=== PATIENT | female | born 1985 | race Caucasian/White ===

== ENCOUNTER 2018-01-26 19:03 | Emergency (ER) | payer BC, SELFPAY ==
[2018-01-26 19:04] VITALS: BP 116/54; PULSE 114; RESP 18; TEMP 36.1; O2SAT 100; BMI 40.3
--- NOTE | 2018-01-26 20:29 | US_ITS ---
STUDY: FIRST TRIMESTER OBSTETRICAL ULTRASOUND REASON FOR EXAM: Female, 33 years old. Pain. LMP: 12/20/2017 TECHNIQUE: Transvaginal PRIOR ULTRASOUND: None. FINDINGS: There is fluid in the endometrial cavity which may represent a gestational sac. There is a rounded echogenic structure within the fluid which may represent a yolk sac. However, there is no pole visualized at this time. There is a 6 mm anechoic area adjacent to the presumed gestational sac which may represent a subchorionic bleed. The uterus measures 8.4 x 5.4 x 4.0 cm. There is no demonstrated uterine fibroid. The cervix is closed. The right ovary measures 3.5 x 2.2 x 2.1 cm. There is a 1.9 cm cyst in the right ovary. There is no visualized right adnexal mass or complex lesion. The left ovary measures 2.8 x 2.0 x 1.4 cm. There is no left ovarian cyst. There is no visualized left adnexal mass or complex lesion. There is no fluid in the cul de sac. US/Transvaginal w/Preg US IMPRESSION: Findings which may represent an early gestational sac and yolk sac. However, no pole is identified at this time. These findings may be due to an early gestation or a spontaneous . A nonvisualized ectopic is considered less likely, though not excluded. Follow up sonography and beta hCG levels are recommended. 6 mm anechoic area adjacent to the presumed gestational sac which may represent a subchorionic hemorrhage. Electronically Signed: Paulo Abraham, at 21:47 EDT Tel , Service support ,
[2018-01-26 21:06] LABS: Bacteria 0 SEEN /hpf (None Seen); Mucous, Urine 0 SEEN /hpf (<or=2+); White Blood Cells 0 SEEN /hpf (0-5)
[2018-01-26 21:11] LABS: Color, Urine Yellow (Yellow); Glucose, Dipstick 50 mg/dl (Normal); Ketone-Dipstick Negative (Negative); Leukocyte Esterase-Dipstick 25 /ul (Negative); Nitrite-Dipstick Negative (Negative); Occult Blood-Urine Negative /ul (Negative); Protein-Dipstick Negative (Negative); Urine Bilirubin Dipstick Negative (Negative); Urine Clarity Clear (Clear); Urine Urobilinogen Normal (Normal)
[2018-01-26 21:22] LABS: Absolute Lymphocyte Count 2.13 X10^3/ul (0.83-4.51); Anion Gap 7 (5-15); BUN 14 mg/dL (7-18); BUN/Creat Ratio 15.8 RATIO (10-20); Basophil# 0.01 X10^3/uL; Basophil% 0.1 % (0-1); Calcium,Total 9.2 mg/dL (8.5-10.1); Chloride 108 mmol/L (98-107); Creatinine, Serum 0.89 mg/dL (0.55-1.02); EST Glomerular Filtration Rate 77 mL/min (>60); Eosinophil# 0.15 X10^3/uL; Eosinophils% 1.5 % (0-5); Est Glom Filt Rate - Afr Amer 93 mL/min (>60); Estimated Creatinine Clearance 95.41 ml/min; Glucose 88 mg/dL (74-106); Hematocrit 39.7 % (37-47); Hemoglobin 12.7 g/dl (12.0-15.0); Lymphocyte # 2.13 X10^3/ul (4.0); Lymphocyte % 21.7 % (19-41); Mean Corpuscular Hgb 27.9 pg (27.0-32.0); Mean Corpuscular Volume 87.3 fL (81-99); Mean Platelet Vol. 10.8 fl (6.2-12.0); Monocyte# 0.48 X10^3/uL; Monocyte% 4.9 % (0-10); Neutrophil # 7.04 X10^3/uL (2.7-7.7); Neutrophil % 71.7 % (47-70); Platelet Count 249 K/mm3 (150-450); Potassium 3.6 mmol/L (3.5-5.1); RBC Distribution Width CV 14.6 % (11.6-14.6); RBC Distribution Width SD 46.3 fl (35.1-43.9); Red Blood Count 4.55 M/mm3 (4.2-5.4); Sodium Level 141 mmol/L (136-145); White Blood Count 9.8 K/mm3 (4.4-11.0)
[2018-01-26 21:31] LABS: POSITIVE COUNT NO; POSITIVE DIFFERENTIAL NO; POSITIVE MORPHOLOGY NO
[2018-01-26 21:39] LABS: hCG Titer Quant., Serum 18528 mIU/mL (<9 non-preg)
[2018-01-26 21:49] LABS: Red Blood Cells-Urine 0-5 SEEN /hpf (0-5); Squamous Epithelial Cells - UA 5-10 SEEN /hpf (5-10)
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
--- NOTE | 2018-01-26 22:31 | ED.DCSUM_ITS ---
- ER Visit Summary Date of Service: 01/26/18 Chief Complaint: [New , back pain] History of Present Illness: The patient is a 33 F [presents the emergency department stating that she just found out 5 days ago she was . Patient thinks she is about 5 weeks . Patient states that she has had some pain in her low back today and it was severe to the point that was making her weep. Patient also has had some swelling to her hands and feet. Patient denies urinary symptoms. Patient denies any vaginal bleeding. She denies any abdominal pain. Patient tells me that she had an ectopic in 2016 and they removed her right fallopian tube. Patient is concerned about ectopic.] Physical Examination: [HEENT-PERRLA, EOMI. Cranial nerves II through XII grossly intact. TMs clear. Mucous membranes moist. No adenopathy. Cardiovascular-regular rate and rhythm without murmur or ectopy Lungs-clear to auscultation, chest wall stable without crepitus or subcu emphysema Abdomen-normoactive bowel sounds, soft, nontender, no rebound or rigidity, no peritoneal signs. Back exam-patient has diffuse tenderness palpation over the lower lumbar paraspinal musculature bilaterally. Negative straight leg raises. Deep tendon reflexes are plus 2 out of 4 bilaterally at the patella and Achilles. Patient has normal L5 extension. Extremities-intact ?4, normal range of motion, normal pulses, atraumatic] Test Results: [CBC with differential was normal. Chemistries unremarkable. Urine was normal. Quantitative hCG was 18,528. Blood type is O+. Pelvic ultrasound was obtained which showed findings that may represent early gestational sac and yolk sac however no pole identified at this time findings may be due to early gestation or spontaneous and non- visualized ectopic is considered less likely though not excluded. Follow-up sonography and beta-hCG levels are recommended. There was a 6 mm anechoic area adjacent to the presumed gestational sac which may represent a subchorionic hemorrhage.] Emergency Department Course and Treatment: [Case was discussed with Dr. Wilde 's agricultural chemist Calli Mccain. Patient to follow-up with their office later this week. Patient will require follow-up hCG and ultrasound.] Treatment Plan: [Patient will be given a prescription for Harbert for pain] Disposition: [Discharged to home in stable condition] Impression: [ Back pain] This note was generated with [employer] dictation software. It may contain incorrect words, spelling, and punctuation that were not noted in review of the chart prior to signing ED Disposition - Plan for ED Patient: Chief Complaint: Referrals: Mauricio Aldridge MD [Primary Care Provider] -
--- NOTE | 2018-01-26 22:34 | DCINST.ED_ITS ---
ED Disposition - Plan for ED Patient: Chief Complaint: Instructions: Back Pain During , ED Care Prescriptions: Hydrocodone Bitart/Apap 5-325 [[place] 5/325] 1 - 2 tab PO Q4H PRN PRN 3 Days #12 tab PRN Reason: Pain Referrals: Mauricio Aldridge MD [Primary Care Provider] - Subha Gibbons MD [STAFF PHYSICIAN] - 3-5 Days
[2018-01-26] MEDS: HYDROcodone Bitartrate/Apap 5/325 Tablet PO (23:00)
[2018-01-26 23:10] VITALS: PULSE 81; RESP 16; O2SAT 98
--- NOTE | 2018-01-26 23:10 | ED.RN ---
THIS NURSE REVIEWED D/C INSTRUCTIONS WITH PT. PT VERBALIZED UNDERSTANDING OF INSTRUCTIONS. IV D/C. IV CATHETER INTACT. PT TOLERATED WELL. PT DENIES FURTHER NEEDS OR QUESTIONS AT THIS TIME. PT AMBULATES FROM ROOM ON OWN WITHOUT ASSISTANCE FROM STAFF
== END 2018-01-26 23:11 | disposition home or self-care (01) ==
PROVIDERS: Emergency Provider Emergency Medicine; Family Provider Family Medicine; PCP Family Medicine
DX: O26.891 Other specified pregnancy related conditions, first trimester (principal); M54.9 Dorsalgia, unspecified; O09.11 Supervision of pregnancy with history of ectopic pregnancy, first trimester; Z3A.01 Less than 8 weeks gestation of pregnancy
CPT/HCPCS: 76817; 80048; 81001; 84702; 85025; 86900; 99283; A4216

== ENCOUNTER → 2018-01-28 10:40 | Outpatient (CLI) | payer BC, SELFPAY ==
[2018-01-28 11:50] LABS: hCG Titer Quant., Serum 23446 mIU/mL (<9 non-preg)
== END ==
PROVIDERS: Visit Provider Obstetrics & Gynecology
DX: O26.20 Pregnancy care for patient with recurrent pregnancy loss, unspecified trimester (principal); Z3A.00 Weeks of gestation of pregnancy not specified
CPT/HCPCS: 36415; 84702

== ENCOUNTER 2018-02-21 12:45 | Emergency (ER) | payer BC, SELFPAY ==
[2018-02-21 12:46] VITALS: BP 143/86; PULSE 98; RESP 16; O2SAT 100
[2018-02-21 12:47] VITALS: BP 143/86; PULSE 103; RESP 18; TEMP 36.9; O2SAT 100; BMI 41.0
[2018-02-21 12:58] VITALS: O2SAT 100
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
[2018-02-21] MEDS: Acetaminophen 500 MG Tablet 1000 MG PO (15:06)
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
[2018-02-21 15:21] LABS: Bacteria 0 SEEN /hpf (None Seen); Mucous, Urine 0 SEEN /hpf (<or=2+); Red Blood Cells-Urine 0 SEEN /hpf (0-5); White Blood Cells 0 SEEN /hpf (0-5)
[2018-02-21 15:23] LABS: Color, Urine Yellow (Yellow); Glucose, Dipstick Normal (Normal); Ketone-Dipstick 50 mg/dl (Negative); Leukocyte Esterase-Dipstick 25 /ul (Negative); Nitrite-Dipstick Negative (Negative); Occult Blood-Urine Negative /ul (Negative); Protein-Dipstick Negative (Negative); Urine Bilirubin Dipstick Negative (Negative); Urine Clarity Clear (Clear); Urine Urobilinogen Normal (Normal); Urine pH 6.5 (5.0 - 8.0)
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
[2018-02-21 15:46] LABS: Squamous Epithelial Cells - UA 0-5 SEEN /hpf (5-10)
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
[2018-02-21 16:10] VITALS: PULSE 89; RESP 14; O2SAT 99
== END 2018-02-21 16:11 | disposition home or self-care (01) ==
PROVIDERS: Emergency Provider Emergency Medicine; Family Provider Family Medicine; PCP Family Medicine
DX: O99.89 Other specified diseases and conditions complicating pregnancy, childbirth and the puerperium (principal); S80.12XA Contusion of left lower leg, initial encounter; S80.11XA Contusion of right lower leg, initial encounter; V43.52XA Car driver injured in collision with other type car in traffic accident, initial encounter; Y93.89 Activity, other specified; Y92.9 Unspecified place or not applicable; O26.891 Other specified pregnancy related conditions, first trimester; R10.13 Epigastric pain; Z3A.08 8 weeks gestation of pregnancy
CPT/HCPCS: 73590; 76700; 76817; 81001; 99282

== ENCOUNTER 2018-09-21 09:50 | Inpatient (IN) | payer BC, SELFPAY ==
[2018-09-15 11:49] VITALS: BMI 42.5
[2018-09-21] VITALS (17 sets, daily range): BP systolic 99–125; BP diastolic 45–84; PULSE 83–99; RESP 14–20; TEMP 35.8–36.7; O2SAT 95–99; BMI 43.0
--- NOTE | 2018-09-21 | FALS_PTH ---
PATIENT: LORI PAREDES LOC: [facility] U#:[id number] AGE/SX: 33/F ROOM: [facility] RE09/21/[address]: Dr. Subha Gibbons, MDDOB: 1985 BED: 1 DIS: 09/23/2018 SPEC #: [id number] RECD: 09/22/18 13:12 STATUS: LALITA MISHA #: [id number] MARCIE: 09/21/18 00:[address]: Subha Gibbons DEPT: SURGICAL PATHOLOGY RECD BY: Nehemiah Temple ENTERED: 09/22/18 13:12 SP TYPE: FALL TUBES OTHR DR: MD Mauricio Callejas MD Tissues: Fallopian tube Procedures: Surgery Specimen Level II HEADER OPERATION: Tubal ligation PRE-OP DIAGNOSIS: Tubal ligation TISSUE SUBMITTED: Left fallopian tube MICROSCOPIC DIAGNOSIS Left fallopian tube, tubal ligation: Completely transected segment of fallopian tube, no pathologic diagnosis. DEBO:marcellus 09/23/18 COMMENT Please make reference to previous specimen ([id number]), right fallopian tube and ectopic with diagnosis of fallopian tube with decidua, immature chorionic villi and blood clots (ectopic ). MICROSCOPIC DESCRIPTION Slides are reviewed. GROSS DESCRIPTION Received in fixative is one container labeled with the patient's name and designated left tube. The specimen consists of a tubular piece of santiago soft tissue measuring 1 cm in length and up to 0.9 cm in diameter. The entire specimen is submitted in one cassette. It will be serially sectioned at the time of embedding. / DEBO:marcellus 09/22/18 TC:4 CPT: 05409
[2018-09-21 10:53] LABS: Absolute Lymphocyte Count 1.48 X10^3/ul (0.83-4.51); Absolute Neutrophil Count 9.3 X10^3/uL (2.0-7.7); Eosinophil# 0.04 X10^3/uL; Eosinophils% 0.4 % (0-5); Hematocrit 37.1 % (37-47); Lymphocyte # 1.48 X10^3/ul (4.0); Lymphocyte % 13.1 % (19-41); Mean Corp Hgb Conc 32.3 g/gl (32-36); Mean Corpuscular Hgb 28.9 pg (27.0-32.0); Mean Corpuscular Volume 89.4 fL (81-99); Mean Platelet Vol. 11.7 fl (6.2-12.0); Monocyte# 0.49 X10^3/uL; Monocyte% 4.3 % (0-10); Neutrophil # 9.31 X10^3/uL (2.7-7.7); Neutrophil % 82.1 % (47-70); Platelet Count 174 K/mm3 (150-450); RBC Distribution Width CV 14.8 % (11.6-14.6); RBC Distribution Width SD 48.2 fl (35.1-43.9); Red Blood Count 4.15 M/mm3 (4.2-5.4); White Blood Count 11.3 K/mm3 (4.4-11.0)
[2018-09-21] MEDS: Lactated Ringers 1,000 ML 999 ML IV (10:58)
[2018-09-21 10:59] LABS: POSITIVE COUNT NO; POSITIVE DIFFERENTIAL NO; POSITIVE MORPHOLOGY NO
[2018-09-21] MEDS: Lactated Ringers 1,000 ML 150 ML IV (11:42)
[2018-09-21] MEDS: Sodium Citrate/Citric Acid 30 ML UDC PO (11:52)
[2018-09-21] MEDS: Oxytocin 30 units/NS 500 ml 30 UNITS/500 ML IV.SOLN 167 UNITS IV (12:36)
--- NOTE | 2018-09-21 13:00 | PCM.OB.CSR ---
Delivery Classification: Scheduled Final [facility]IN[facility]Y Source: US <20 weeks Gestational age: 39.2 Indications: LGA- morbid obesity, EFW >4500g, h/o vacuum assisted delivery (previous delivery 8lb) Indications for : - - LGA Description of Procedure: Operative note: After informed consent was obtained the patient was taken the operating room she was given spinal anesthesia. She was then placed in the supine position. She was prepped and draped in the normal sterile fashion. Anesthesia was found to be adequate. At this time a Pfannenstiel skin incision was made with a knife was carried down to the underlying layer of the fascia. The fascial incision was then extended laterally using curved Zaman scissor. Attention was then turned to the superior aspect of the fascial edge was grasped with 2 straight [place] clamps tented up and the rectus muscle dissected off sharply using curved Zaman scissor. Attention was then turned to the inferior aspect where again Flor clamps were placed in the rectus muscles were tented up and the fascia was dissected off sharply using the curved Zaman scissor. Rectus muscles were then in the midline bluntly and peritoneum was entered bluntly. Gentle opposing traction was placed. At this time the vesicouterine peritoneum was identified. Scalpel was used to make a uterine incision in a low transverse fashion. The uterus was then entered bluntly gentle opposing traction was placed to extend this incision. Membranes were ruptured clear. Infant's head was brought to the uterine incision was delivered atraumatically. delayed cord clamping performed. Cord was clamped and cut infant was handed to the waiting nursery team. The Placenta was removed from the uterus. The uterus was then removed from the abdominal cavity. The uterus was cleared of all clots and debris using a lap. At this time the uterine incision was reapproximated using #1 Vicryl in a running locked fashion. Hemostasis was appreciated. Posterior cul-de-sac was then cleared of all clots and debris. [place] used to grasp left tube in avascular space- knuckle created and tied with #2 plain gut suture - double - metzenbaum used to create space in mesosalpinx and cut - ends cauterized with bovie- good hemostasis. Uterus was placed back in the abdominal cavity. Gutters were cleared of all clots and debris. Uterine incision was reevaluated and noted to be of excellent hemostasis. At this time the peritoneum was grasped with Kellys reapproximated using #2 Vicryl suture in a running fashion. Fascia was then reapproximated using #1 PDS in a running fashion. Subcu layer was reapproximated with #2 0 plain gut suture in an interrupted fashion. Subcu layer was closed using 4-0 Vicryl on a Bo needle in a subcu fashion. Dry sterile dressing was applied. Instrument lap needle count correct ?2. Anticipated normal postoperative course. Amniotic Membrane Rupture Type: Artificial Amniotic Fluid Description: Clear Placenta Disposition: [facility] Specimen(s) sent to pathology: left tube Drain: Lopez to straight drain Cord Entanglement: None Cord Vessel Description: 3 Vessels Esitmated Blood Loss (ml): 700 Gender: Male (1 minute): 9 (5 minute): 9 Delayed cord clamping: Yes Pre-op Antibiotic Given: Ancef 2 grams IV x1 Pt instructed on risks of surgery: Bleeding, Anesthesia Risks, Permanency, Failure Rate of 1 to 2%, Injury to surrounding structure(s) including bowel and bladder, Availability of other non-permanent control options Complications: None - Admit VTE Documentation VTE Present on Admission: Yes VTE Mechan Device Prophylaxis: SCD's VTE Pharm Prophylaxis ordered?: Yes
[2018-09-21] MEDS: Ketorolac 30 MG/ML Syringe IV ×2 (13:08→19:31)
[2018-09-21] MEDS: Lactated Ringers 1,000 ML 100 ML IV (15:34)
[2018-09-21] MEDS: Ondansetron 4 MG/2 ML Vial IV (16:06)
--- NOTE | 2018-09-21 16:37 | NURSING ---
pt nauseated and vomitting. zofran ivp given
[2018-09-22] VITALS (8 sets, daily range): BP systolic 106–120; BP diastolic 56–98; PULSE 91–106; RESP 16–20; TEMP 35.9–36.9; O2SAT 96–99
[2018-09-22] MEDS: Ketorolac 30 MG/ML Syringe IV ×5 (00:03→23:32)
[2018-09-22] MEDS: Lactated Ringers 1,000 ML 100 ML IV (01:31)
[2018-09-22] MEDS: Enoxaparin 40 MG/0.4 ML Syringe SC (05:47)
[2018-09-22 06:02] LABS: Hematocrit 31.7 % (37-47); Hemoglobin 10.3 g/dl (12.0-15.0); Mean Corp Hgb Conc 32.5 g/gl (32-36); Mean Corpuscular Hgb 29.7 pg (27.0-32.0); Mean Corpuscular Volume 91.4 fL (81-99); Mean Platelet Vol. 11.5 fl (6.2-12.0); Platelet Count 144 K/mm3 (150-450); RBC Distribution Width CV 14.9 % (11.6-14.6); RBC Distribution Width SD 48.3 fl (35.1-43.9); Red Blood Count 3.47 M/mm3 (4.2-5.4); White Blood Count 9.7 K/mm3 (4.4-11.0)
[2018-09-22 06:03] LABS: Scan Indicated on CBC? Y/N NO
--- NOTE | 2018-09-22 07:55 | PN.OBGYN_ITS ---
Subjective: pt seen at bedside, doing well. Pt reports good pain control. lochia mild. Shepherd in place. Denies CP, SOB, dizziness. - Physical Exam General: Alert, Oriented x3 Abdomen: Soft, Non-Distended, - - fundus firm. dressing dry and intact. Extremities: No Calf Tenderness Vital Signs Temp Pulse Resp BP Pulse Ox 97.4 F L 100 18 115/59 L 97 09/22/18 03:30 09/22/18 05:40 09/22/18 05:40 09/22/18 03:30 09/22/18 05:40 Oxygen Delivery Method Room Air Weight: 136.191 kg Body Mass Index (BMI) 43.0 Intake and Output for Last 24 Hours 09/20/18 09/21/18 09/22/18 23:59 23:59 23:59 Intake Total 4021 / 4021 1580 / 1580 Output Total 590 / 590 400 / 400 Balance 3431 / 3431 1180 / 1180 Laboratory Tests Past 24 Hrs 09/21/18 09/21/18 09/22/18 10:25 10:25 05:55 WBC 11.3 H 9.7 RBC 4.15 L 3.47 L Hgb 12.0 10.3 L Hct 37.1 31.7 L MCV 89.4 91.4 MCH 28.9 29.7 MCHC 32.3 32.5 RDW 14.8 H 14.9 H RDW Differential 48.2 H 48.3 H Plt Count 174 144 L MPV 11.7 11.5 Immature Gran % (Auto) 0.100 Neut % (Auto) 82.1 H Lymph % (Auto) 13.1 L Carroll % (Auto) 4.3 Eos % (Auto) 0.4 Baso % (Auto) 0.0 Absolute Neuts (auto) 9.3 H Absolute Lymphs (auto) 1.48 Total Counted Not Reportable Blood Type O POSITIVE Antibody Screen NEGATIVE Medical Necessity - Tobacco Use Smoking Status: Never smoker Assessment/Plan POD#1, doing well routine care pain mgmt dc shepherd ambulation abd binder
[2018-09-22] MEDS: 0.9% Saline Lock 10 ML Syringe IV ×3 (12:16→23:33)
[2018-09-22] MEDS: Senna/Docusate Sodium 1 Tablet PO (12:16)
[2018-09-22] MEDS: Acetaminophen 500 MG Tablet 1000 MG PO (17:42)
[2018-09-22] MEDS: oxyCODONE 5 MG Tablet PO (18:58)
[2018-09-23 01:40] VITALS: BP 125/61; PULSE 96; RESP 16; TEMP 36.6; O2SAT 98
[2018-09-23] MEDS: Ketorolac 30 MG/ML Syringe IV (05:54)
[2018-09-23] MEDS: Enoxaparin 40 MG/0.4 ML Syringe SC (05:54)
[2018-09-23] MEDS: 0.9% Saline Lock 10 ML Syringe IV (05:54)
[2018-09-23 08:01] VITALS: BP 111/70; PULSE 88; RESP 16; TEMP 36.6
--- NOTE | 2018-09-23 08:12 | PCM.PN.OB ---
Subjective: pt seen at bedside, doing well. pt reports overall good pain control. lochia mild . passing flatus. Denies CP, SOB, dizziness or palpitation. pt requesting dc home today. - Physical Exam General: Alert, Oriented x3 Abdomen: Soft, Non-Distended, - - fundus firm. Incision dressing dry and intact Extremities: No Calf Tenderness Vital Signs Temp Pulse Resp BP Pulse Ox 98 F 88 16 111/70 98 09/23/18 08:01 09/23/18 08:01 09/23/18 08:01 09/23/18 08:01 09/23/18 01:40 Oxygen Delivery Method Room Air Weight: 136.191 kg Body Mass Index (BMI) 43.0 Intake and Output for Last 24 Hours 09/21/18 09/22/18 09/23/18 23:59 23:59 23:59 Intake Total 4021 / 4021 1580 / 1580 Output Total 590 / 590 1000 / 1000 Balance 3431 / 3431 580 / 580 Medical Necessity - Tobacco Use Smoking Status: Never smoker Assessment/Plan POD#2, doing well routine care pain mgmt ambulation dc home
--- NOTE | 2018-09-23 08:17 | DCINST_ITS ---
Discharge Diet: No Restrictions Discharge Activity: Return to Normal Activity, May Not Drive - for 2 weeks, May not drive while taking narcotic pain medications., May Shower, May Take a Tub Bath - in 7 days. May resume sexual activity in: 4-6 weeks Lifting Restrictions: 20 pounds Additional Activity Instructions:: Nothing in the vagina for 4-6 weeks. You may return to work/school in 6 weeks. Call your doctor if your incision/area has: Continuous Slow Oozing, Sudden Increased Bleeding, Increased Pain/ Swelling, Increased Redness, Foul Smelling Discharge Call your doctor if you observe: Fever of 101 or Higher, Using more than one pad per hour - for 2 hours Suture Line Care: Avoid Pulling/Pushing, Avoid Pinching/Bending Cleanse incision/area with: Keep Dressing Clean & Dry Additional Instructions: If you experience any of the following, contact your healthcare provider. * Bleeding that soaks a pad every hour for 2 hours * Fever 100.4 or higher * Unrelieved incision or abdominal pain * Swelling, redness, discharge or bleeding from your incision or episiotomy site * Your incision begins to separate * Problems urinating (including inability to urinate or burning while urinating). * Visual changes * Severe headache * Flu-like symptoms * Pain or redness in one of both of your breasts * Pain, warmth, tenderness or swelling in your legs, especially the calf area * Frequent nausea and vomiting * Symptoms of depression or anxiety If you experience any of the following, call 911 or go to the nearest Emergency Room. * Chest pain * Problems breathing * Seizure activity * Partial or complete paralysis of a body part, slurred speech, weakness or drooping of the face, or a sudden inability to walk or hold your balance Allergies/Adverse Reactions: Allergies amoxicillin trihydrate [From Augmentin] Allergy (Verified 02/21/18 12:55) Rash potassium clavulanate [From Augmentin] Allergy (Verified 02/21/18 12:55) Rash tramadol Allergy (Verified 02/21/18 12:55) Itching hydrocodone [From Vicodin] Adverse Reaction (Verified 02/21/18 12:55) Nausea Medications to take at Discharge Vits [Prenatabs FA ] 1 tablet PO DAILY 10/13/16 Iron 325 mg PO DAILY 09/15/18 Ibuprofen [Motrin] 600 mg PO Q6H PRN PRN #60 tablet 09/23/18 Oxycodone HCl/Acetaminophen [Percocet 5/325] 1 - 2 tablet PO Q4H PRN PRN 7 Days #20 tablet 09/23/18 Senna/Docusate Sodium [Senokot-S] 1 - 2 tab PO DAILY PRN #30 tablet 09/23/18 SimETHICONE [Mylicon] 80 mg PO PCHS PRN #30 tablet 09/23/18 The following prescriptions were given: Oxycodone HCl/Acetaminophen [Percocet 5/325] 1 - 2 tablet PO Q4H PRN PRN 7 Days #20 tablet PRN Reason: Pain Ibuprofen [Motrin] 600 mg PO Q6H PRN PRN #60 tablet PRN Reason: Mild Pain (-12/20) Senna/Docusate Sodium [Senokot-S] 1 - 2 tab PO DAILY PRN #30 tablet PRN Reason: Constipation SimETHICONE [Mylicon] 80 mg PO PCHS PRN #30 tablet PRN Reason: Indigestion/stomach pain Follow-Up: Call to make an appointment with your doctor for an incision check in 1-2 weeks. You will also need a 6 week post- follow up appointment. Test results from this visit will be discussed in further detail at your follow- up appointment, if applicable. Please Follow Up With: Subha Gibbons MD - Call to make an appointment for an incision check in 1-2 [phone] When: You will need a post- check in 6 weeks. Primary Care Physician: Mauricio Aldridge MD [Primary Care Provider] -
[2018-09-24 10:48] LABS: Pathology Specimen OB SEE PATHOLOGY REPORT
== END 2018-09-23 10:45 | disposition home or self-care (01) | DRG 785 ==
PROVIDERS: Admitting Provider Obstetrics & Gynecology; Family Provider Family Medicine; PCP Family Medicine; Referring Provider Obstetrics & Gynecology; Visit Provider Obstetrics & Gynecology
PROC: 10D00Z1 Extraction of Products of Conception, Low, Open Approach (ICD-10-PCS; CPT 59514; principal; 2018-09-21 11:45)
DX: O36.63X0 Maternal care for excessive fetal growth, third trimester, not applicable or unspecified (principal); O99.214 Obesity complicating childbirth; E66.01 Morbid (severe) obesity due to excess calories; Z3A.39 39 weeks gestation of pregnancy; Z37.0 Single live birth; Z30.2 Encounter for sterilization; Z87.59 Personal history of other complications of pregnancy, childbirth and the puerperium
CPT/HCPCS: 85025; 85027; 86850; 86900; 88302; 99218; J7120; A4216; G0378; J2405

== ENCOUNTER 2019-01-15 23:23 | Emergency (ER) | payer BC, SELFPAY ==
[2018-09-21 10:17] VITALS: BMI 43.0
[2019-01-15 23:24] VITALS: BP 137/62; PULSE 97; RESP 15; TEMP 36.7; O2SAT 98; BMI 43.3
--- NOTE | 2019-01-15 23:58 | ED.VIS.GEN ---
History of Present Illness Chief Complaint: Shortness of Breath Informant: Patient Onset: Today Context: Gradual Onset Timing: Continuous Quality: pleuritic sharp pain Location: left upper back Current Severity: Moderate Maximum Severity: Moderate Worsened by: deep inspiration, cough Relieved by: breathing easy Narrative: Patient states she feels like she has had a cold for about 2 weeks. She states the cough has been improving and now she gradually developed pleuritic left hemithorax posterior pain throughout this past day over the last 10-12 hours or so. She denies any leg pain or swelling, fevers, no history of DVT or PE. No recent long trips, immobilization, hospitalization, or surgery in the past 2-3 months. History of asthma but states her cold has not been making her asthma worse. Minor sore throat, no earache. No significant nasal congestion. - Past Medical History (1) Asthma Status: Chronic Past Medical History - Allergies and Home Meds Allergies/Adverse Reactions: Allergies amoxicillin trihydrate [From Augmentin] Allergy (Verified 01/15/19 23:28) Rash potassium clavulanate [From Augmentin] Allergy (Verified 01/15/19 23:28) Rash tramadol Allergy (Verified 01/15/19 23:28) Itching hydrocodone [From Vicodin] Adverse Reaction (Verified 01/15/19 23:28) Nausea Primary Care Physician: Mauricio Aldridge MD [Primary Care Provider] - Smoking Status: Never smoker Review of Systems General: Denies: Chills, Fever Eyes: Denies: Visual changes - bilaterally, Diplopia ENT: Reports: Sore throat. Denies: Bilateral ear pain, Rhinorrhea Cardiovascular: Denies: Chest pain, Palpitations Respiratory: Reports: Cough. Denies: Dyspnea, Sputum, Dyspnea on exertion Gastrointestinal: Denies: Abdominal pain, Nausea, Vomiting, Diarrhea, Melena, Hematochezia Genitourinary: Denies: Dysuria, Hematuria, Frequency Musculoskeletal: Reports: Back pain. Denies: Neck pain, Swelling, Extremity Pain Skin: Denies: Rash, Wounds Neurological: Denies: Headache, Weakness, Numbness Physical Exam Vital Signs/Narrative: Vital Signs Temp Pulse Resp BP Pulse Ox 01/15/19 23:24 98.0 F 97 15 137/62 H 98 Inital Vital Signs reviewed: Yes General: Well nourished, Well developed, No Acute Distress Head: Normocephalic, Atraumatic Eyes: Perrl, EOMI ENT: Moist mucous membranes, No rhinorrhea Neck: Supple, Nontender Cardiovascular: Regular rate, Regular rhythm, No murmurs, Tachycardia - mild Respiratory: No distress, CTA bilaterally, Chest nontender, - - +splinting on deep inspiration, mildly Abdomen: Soft, Nontender, Nondistended, Normal bowel sounds Back: Nontender - no reproducible tenderness in area of pain, Normal Inspection Extremities: Nontender, No edema. Negative for: Calf Tenderness Skin: Normal color, No rash, No Trauma Neurological: Alert, Oriented x3, Cranial nerves II-XII grossly intact, Normal Strength, Normal Sensation Psychological: Normal affect, Normal Mood Diagnostic/Tx/Re-eval Chest X-Ray - ED: 2 View, Read by ED Physician, Normal, Heart, Lungs, Mediastinum, Bony Structures, No Acute Disease Laboratory Tests 01/16/19 01/16/19 01/16/19 Range/Units 00:15 00:15 00:15 WBC 8.2 (4.4-11.0) K/mm3 RBC 4.34 (4.2-5.4) M/mm3 Hgb 11.9 L (12.0-15.0) g/dl Hct 37.4 (37-47) % MCV 86.2 (81-99) fL MCH 27.4 (27.0-32.0) pg MCHC 31.8 L (32-36) g/gl RDW 14.8 H (11.6-14.6) % RDW Differential 47.1 H (35.1-43.9) fl Plt Count 252 (150-450) K/mm3 MPV 10.7 (6.2-12.0) fl Immature Gran % (Auto) 0.100 (0.0-0.9) % Neut % (Auto) 66.6 (47-70) % Lymph % (Auto) 25.3 (19-41) % Barbour % (Auto) 6.2 (0-10) % Eos % (Auto) 1.6 (0-5) % Baso % (Auto) 0.2 (0-1) % Absolute Neuts (auto) 5.4 (2.0-7.7) X10^3/uL Absolute Lymphs (auto) 2.07 (0.83-4.51) X10^3/ul Total Counted Not Reportable D-Dimer Quant (PE/DVT) 0.43 (0.27-0.49) FEU/ug/m Sodium 140 (136-145) mmol/L Potassium 3.9 (3.5-5.1) mmol/L Chloride 107 (98-107) mmol/L Carbon Dioxide 29.0 (21.0-32.0) mmol/L Anion Gap 4 L (5-15) BUN 17 (7-18) mg/dL Creatinine 1.01 (0.55-1.02) mg/dL Estim Creat Clear Calc 84.07 ml/min Est GFR (MDRD) Af Amer 80 (>60) mL/min Est GFR (MDRD) Non-Af 66 (>60) mL/min BUN/Creatinine Ratio 16.8 (10-20) RATIO Glucose 102 (74-106) mg/dL Calcium 8.9 (8.5-10.1) mg/dL - Medical Decision Making Patient discomfort improved after Toradol. Her chest x-ray shows no acute pneumonia on my interpretation and her d-dimer is within normal limits, her other labs are all normal as well, consistent with the lack of pneumonia clinically and radiographically. I think she has pleurisy. Reassured, prescribed Naprosyn, encouraged to return for worsening symptoms, and to follow-up with her doctor if persistent for longer than a week, but this should be self-limiting, likely a reactive pleurisy as a result of her recent viral illness. She is comfortable with this plan. ED Disposition - Plan for ED Patient: Disposition: Home or Assisted Living Diagnosis: Pleurisy Instructions: Pleurisy Prescriptions: Naproxen [Naprosyn] 500 mg PO BID PRN #20 tablet Referrals: Mauricio Aldridge MD [Primary Care Provider] - 1 Week if not improving
[2019-01-16] MEDS: Ketorolac 30 MG/ML Syringe IV (00:14)
[2019-01-16 00:16] VITALS: O2SAT 96
[2019-01-16 00:50] LABS: Absolute Lymphocyte Count 2.07 X10^3/ul (0.83-4.51); Absolute Neutrophil Count 5.4 X10^3/uL (2.0-7.7); Basophil# 0.02 X10^3/uL; Basophil% 0.2 % (0-1); Eosinophil# 0.13 X10^3/uL; Eosinophils% 1.6 % (0-5); Hematocrit 37.4 % (37-47); Hemoglobin 11.9 g/dl (12.0-15.0); Lymphocyte # 2.07 X10^3/ul (4.0); Lymphocyte % 25.3 % (19-41); Mean Corp Hgb Conc 31.8 g/gl (32-36); Mean Corpuscular Hgb 27.4 pg (27.0-32.0); Mean Corpuscular Volume 86.2 fL (81-99); Mean Platelet Vol. 10.7 fl (6.2-12.0); Monocyte# 0.51 X10^3/uL; Monocyte% 6.2 % (0-10); Neutrophil # 5.43 X10^3/uL (2.7-7.7); Neutrophil % 66.6 % (47-70); Platelet Count 252 K/mm3 (150-450); RBC Distribution Width CV 14.8 % (11.6-14.6); RBC Distribution Width SD 47.1 fl (35.1-43.9); Red Blood Count 4.34 M/mm3 (4.2-5.4); White Blood Count 8.2 K/mm3 (4.4-11.0)
[2019-01-16 00:51] LABS: POSITIVE COUNT NO; POSITIVE DIFFERENTIAL NO; POSITIVE MORPHOLOGY NO
--- NOTE | 2019-01-16 01:01 | RAD_ITS ---
HISTORY: SOB CHEST TIGHTNESS HX OF ASTHMANO SX NONSMOKERPT SHIELDED EXAM:XR Chest 2 Views COMPARISON: None FINDINGS: EKG leads in place. Normal heart size. No vascular congestion, pleural effusion, or acute pulmonary infiltration. No pneumothorax. The bony thorax appears intact. RAD/Chest PA and Lateral IMPRESSION: No acute cardiopulmonary disease. at 0122 Reported and signed by: Mukul Bill MD Electronically Signed: Mukul Bill, at 1:21 EDT Tel , Service support ,
[2019-01-16 01:07] LABS: D-Dimer Quantitative (DVT/PE) 0.43 FEU/ug/m (0.27-0.49)
[2019-01-16 01:17] LABS: Anion Gap 4 (5-15); BUN 17 mg/dL (7-18); BUN/Creat Ratio 16.8 RATIO (10-20); Calcium,Total 8.9 mg/dL (8.5-10.1); Chloride 107 mmol/L (98-107); Creatinine, Serum 1.01 mg/dL (0.55-1.02); EST Glomerular Filtration Rate 66 mL/min (>60); Est Glom Filt Rate - Afr Amer 80 mL/min (>60); Estimated Creatinine Clearance 84.07 ml/min; Glucose 102 mg/dL (74-106); Potassium 3.9 mmol/L (3.5-5.1); Sodium Level 140 mmol/L (136-145)
[2019-01-16 01:29] VITALS: BP 126/79; PULSE 101; RESP 20; O2SAT 96
== END 2019-01-16 01:34 | disposition home or self-care (01) ==
PROVIDERS: Emergency Provider Emergency Medicine; Family Provider Family Medicine; PCP Family Medicine
DX: R09.1 Pleurisy (principal)
CPT/HCPCS: 71046; 80048; 85025; 85379; 96374; 99283; A4216

== ENCOUNTER 2019-07-15 19:39 | Emergency (ER) | payer OTHER, SELFPAY ==
[2019-07-15 19:40] VITALS: BP 126/80; PULSE 114; RESP 18; TEMP 36.8; O2SAT 98; BMI 39.7
--- NOTE | 2019-07-15 20:06 | ED.VIS.GEN ---
History of Present Illness Chief Complaint: Lower Extremity Injury Informant: Patient Onset: Today Context: Gradual Onset Timing: Continuous Current Severity: Moderate Maximum Severity: Moderate Narrative: The patient presents to the emergency department with left ankle injury. Patient works as a graphic design teacher. She states there was a 70 pound child that grabbed and twisted her ankle today and then fell on it. Had some swelling and difficulty bearing weight. She denies other injury. The patient is otherwise been in her normal state of health. Prior similar symptoms: No Recent Illness/Hospitalization: No Past Medical History - Allergies and Home Meds Allergies/Adverse Reactions: Allergies amoxicillin trihydrate [From Augmentin] Allergy (Verified 07/15/19 19:40) Rash potassium clavulanate [From Augmentin] Allergy (Verified 07/15/19 19:40) Rash tramadol Allergy (Verified 07/15/19 19:40) Itching hydrocodone [From Vicodin] Adverse Reaction (Verified 07/15/19 19:40) Nausea Primary Care Physician: [facility] [GROUP OF PHYSICIANS] - Prior records reviewed: Yes Past Medical History: None Surgical History: no surgical history Smoking Status: Never smoker Review of Systems General: Denies: Chills, Fever, Sweats Eyes: Denies: Visual changes - bilaterally, Diplopia ENT: Denies: Rhinorrhea, Sore throat Cardiovascular: Denies: Chest pain, Palpitations Respiratory: Denies: Dyspnea, Cough, Dyspnea on exertion Gastrointestinal: Denies: Abdominal pain, Nausea, Vomiting, Diarrhea, Melena, Hematochezia Genitourinary: Denies: Dysuria, Hematuria, Frequency Musculoskeletal: Denies: Back pain, Extremity Pain Skin: Denies: Rash, Wounds Neurological: Denies: Headache, Weakness, Numbness Physical Exam Vital Signs/Narrative: Vital Signs Temp Pulse Resp BP Pulse Ox 07/15/19 19:40 98.2 F 114 H 18 126/80 H 98 Inital Vital Signs reviewed: Yes General: Well nourished, Well developed, No Acute Distress Head: Normocephalic, Atraumatic Eyes: Perrl, EOMI ENT: Moist mucous membranes, No rhinorrhea Neck: Supple, Nontender Cardiovascular: Regular rate, Regular rhythm, No murmurs Respiratory: No distress, CTA bilaterally, Chest nontender Abdomen: Soft, Nontender, Nondistended, Normal bowel sounds Back: Nontender, Normal Inspection Extremities: No edema, Tenderness - Lateral malleolus of the left. Normal pulses. Compartments soft. Turner negative. Skin: Normal color, No rash Neurological: Alert, Oriented x3, Cranial nerves II-XII grossly intact, Normal Strength, Normal Sensation Psychological: Normal affect, Normal Mood Diagnostic/Tx/Re-eval Clinical Impression(s) from Imaging Studies Ankle X-Ray 07/15/19 20:14 IMPRESSION: No fracture or dislocation. Plantar calcaneal spurring. Electronically Signed: Mauricio Luevano, at 20:32 EDT Tel , Service support , - Medical Decision Making The patient symptoms do seem consistent with ankle sprain. Plain films were obtained. There is no evidence of acute fracture. Patient is placed in a removable air splint and will be given crutches. She will be given anti-inflammatories and outpatient follow-up. The patient will be discharged home. Impression Left ankle sprain ED Disposition - Plan for ED Patient: Disposition: Home or Assisted Living Instructions: Sprain, Ankle, with X-Ray Prescriptions: Naproxen [Naprosyn] 500 mg PO BID PRN #20 tab Prescription Printed Referrals: [facility] [GROUP OF PHYSICIANS] -
--- NOTE | 2019-07-15 20:14 | RAD_ITS ---
STUDY: X-RAY - LEFT ANKLE REASON FOR EXAM: Female, 34 years old. Pain TECHNIQUE: 3 view(s) of the ankle. COMPARISON: None. FINDINGS: There is no evidence of fracture or dislocation. Plantar calcaneal spurring is present. There are no radiodense foreign bodies. RAD/Ankle min 3 Views IMPRESSION: No fracture or dislocation. Plantar calcaneal spurring. Electronically Signed: Mauricio Luevano, at 20:32 EDT Tel , Service support ,
== END 2019-07-15 20:50 | disposition home or self-care (01) ==
LOC: ED 20:08
PROVIDERS: Emergency Provider Emergency Medicine; Family Provider Internal Medicine; PCP Internal Medicine
DX: S93.402A Sprain of unspecified ligament of left ankle, initial encounter (principal); W50.2XXA Accidental twist by another person, initial encounter; Y93.89 Activity, other specified; Y92.210 Daycare center as the place of occurrence of the external cause; Y99.0 Civilian activity done for income or pay
CPT/HCPCS: 73610; 99284

== ENCOUNTER 2019-10-17 14:32 | Emergency (ER) | payer OTHER, SELFPAY ==
[2019-10-17 14:33] VITALS: BP 129/87; PULSE 92; RESP 16; TEMP 36.3; O2SAT 98; BMI 40.2
--- NOTE | 2019-10-17 15:02 | EKG12_ITS ---
Test Reason : CHESTPRESSURE Blood Pressure : / mmHG Vent. Rate : 084 BPM Atrial Rate : 084 BPM P-R Int : 132 ms QRS Dur : 092 ms QT Int : 376 ms P-R-T Axes : 058 043 046 degrees QTc Int : 444 ms Normal sinus rhythm Low voltage QRS Borderline ECG Confirmed by RYAN SEGAL, SEGUN ([id number]), news copy editor CHANDLER FITZGERALD ([id number]) on 10/19/2019 8:54:59 AM Referred By: MARCUS Confirmed By:SEGUN DAVIS MD
--- NOTE | 2019-10-17 15:03 | ED.DCSUM_ITS ---
History of Present Illness Chief Complaint: General Illness Detail of Chief Complaint: migraine, stomach flu Informant: Patient Onset: Days - 2 Context: Gradual Onset Quality: throbbing headache Location: right frontal/retroorbital Current Severity: Severe Maximum Severity: Severe Worsened by: light Relieved by: imitrex yest, but not this AM Associated Symptoms: n/v/d. mid-chest pressure. difficult to take full breath. Narrative: Patient started having nausea, vomiting, diarrhea 2 days ago. She also developed a migraine that she has not had in the last 3 or 4 months but a typical migraine for her. She took Imitrex and was able to keep it down which took her migraine away at that time. She had another migraine today and took an Imitrex and kept it down but it did not relieve her headache. Additionally since this morning, she has had constant mid chest pressure and it feels difficult to take a deep breath although she is not dyspneic. She has had no cough lately. She states taking a deep breath makes her chest discomfort feel a little worse, but she has no sharp pleuritic lateralizing pains. No recent cold. No recent leg swelling, or orthopnea but lying supine makes her chest feel worse. No recent travel out of the area or country or eating suspicious foods or ground water ingestion. No recent antibiotics. Diarrhea is watery, nonbloody, and not severe in its amount/frequency. Vomiting is nonbilious, nonbloody. Prior similar symptoms: No - w/r/t chest pain; does not feel like asthma. Recent Illness/Hospitalization: No - Past Medical History (1) Migraines Status: Chronic (2) Asthma Status: Chronic Past Medical History - Allergies and Home Meds Allergies/Adverse Reactions: Allergies amoxicillin trihydrate [From Augmentin] Allergy (Verified 10/17/19 14:33) Rash potassium clavulanate [From Augmentin] Allergy (Verified 10/17/19 14:33) Rash tramadol Allergy (Verified 10/17/19 14:33) Itching hydrocodone [From Vicodin] Adverse Reaction (Verified 10/17/19 14:33) Nausea Primary Care Physician: Irma Augustin MD [Primary Care Provider] - Surgical History: no surgical history Lives: Spouse/ Significant Other Smoking Status: Never smoker Alcohol: None Review of Systems General: Reports: Malaise. Denies: Chills, Fever, Sweats Eyes: Denies: Visual changes - bilaterally, Diplopia ENT: Denies: Rhinorrhea, Sore throat Cardiovascular: Reports: Chest pain. Denies: Palpitations Respiratory: Denies: Dyspnea, Cough, Dyspnea on exertion, Orthopnea Gastrointestinal: Reports: Nausea, Vomiting, Diarrhea. Denies: Abdominal pain, Melena, Hematochezia Genitourinary: Denies: Dysuria, Hematuria, Frequency Musculoskeletal: Denies: Neck pain, Back pain, Swelling, Extremity Pain Skin: Denies: Rash, Wounds Neurological: Reports: Headache. Denies: Weakness, Numbness Physical Exam Vital Signs/Narrative: Vital Signs Temp Pulse Resp BP Pulse Ox 10/17/19 14:33 97.3 F L 92 16 129/87 H 98 Inital Vital Signs reviewed: Yes General: Well nourished, Well developed, Obese, No Acute Distress Head: Normocephalic, Atraumatic Eyes: Perrl, EOMI ENT: Moist mucous membranes, No rhinorrhea Neck: Supple, Nontender, No lymphadenopathy, No JVD Cardiovascular: Regular rate, Regular rhythm, No murmurs Respiratory: No distress, CTA bilaterally, Chest nontender Abdomen: Soft, Nontender, Nondistended, Normal bowel sounds Back: Nontender, Normal Inspection. Negative for: CVA tenderness Extremities: Nontender, No edema Skin: Normal color, No rash Neurological: Alert, Oriented x3, Cranial nerves II-XII grossly intact, Normal Strength, Normal Sensation Psychological: Normal affect, Normal Mood Diagnostic/Tx/Re-eval Laboratory Tests 10/17/19 Range/Units 15:10 Sodium 138 (136-145) mmol/L Potassium 3.7 (3.5-5.1) mmol/L Chloride 109 H (98-107) mmol/L Carbon Dioxide 24.0 (21.0-32.0) mmol/L Anion Gap 5 (5-15) BUN 8 (7-18) mg/dL Creatinine 0.76 (0.55-1.02) mg/dL Estim Creat Clear Calc 114.38 ml/min Est GFR (MDRD) Af Amer 111 (>60) mL/min Est GFR (MDRD) Non-Af 91 (>60) mL/min BUN/Creatinine Ratio 10.6 (10-20) RATIO Glucose 98 (74-106) mg/dL Calcium 8.2 L (8.5-10.1) mg/dL Clinical Impression(s) from Imaging Studies Chest X-Ray 10/17/19 15:30 IMPRESSION: Normal x-ray examination of the chest. Electronically Signed: Tee Stallworth at 16:19 EST Tel , Service support , - Rhythm Strip Rhythm Strip: Sinus Rhythm Rate: 85 Ectopy: None - EKG Initial EKG Interpretation: Sinus Rhythm, No Acute Injury Pattern, - - nml axis/intervals - Medical Decision Making EKG and chest x-ray are unremarkable. After GI cocktail, her chest discomfort completely resolved, confirming my suspicion that this was esophageal in etiology. This may be related to all of the vomiting she has been having. Her electrolytes are within normal limits. With IV fluids, Reglan, and Toradol, her headache is significantly improved and her nausea is resolved at this time. She is comfortable going home and feels better. Suspect viral etiology of her gastroenteritis and this might have triggered a migraine as well. She agrees and is comfortable with going home, she was given a prescription for Reglan to use as needed. ED Disposition - Plan for ED Patient: Disposition: Home or Assisted Living Diagnosis: Migraine, Viral gastroenteritis, Chest pain, unspecified Instructions: ED, Migraine (Classical), GASTROENTERITIS, Viral (4y-Adult) Prescriptions: Metoclopramide [Reglan] 10 mg PO Q6H PRN #16 tab PRN Reason: nausea or migraine Transmission Status: Pending to [facility]/pharmacy #[id number] Referrals: Irma Augustin MD [Primary Care Provider] - 3-5 Days if not improving
[2019-10-17] MEDS: Mag Hydrox/Al Hydrox/Simeth 30 ML UDC PO (15:17)
[2019-10-17] MEDS: Metoclopramide 10 MG/2 ML Vial IV (15:18)
[2019-10-17] MEDS: Ketorolac 30 MG/ML Syringe IV (15:19)
[2019-10-17] MEDS: 0.9% Normal Saline 1,000 ML 999 ML IV (15:19)
--- NOTE | 2019-10-17 15:30 | RAD_ITS ---
STUDY: X-RAY CHEST REASON FOR EXAM: Female, 34 years old. pt stated general illness TECHNIQUE: PA and lateral views of the chest. COMPARISON: 01/16/2019 FINDINGS: The lungs are clear and expanded. There is no demonstrated pleural abnormality. Normal size heart. Normal mediastinum and albertina. Normal visualized pulmonary arteries. Normal visualized aortic arch and descending thoracic aorta. Normal visualized thoracic spine. Normal visualized ribs, clavicles, and shoulders. There is no demonstrated abnormality of the visualized soft tissue structures of the upper abdomen. RAD/Chest PA and Lateral IMPRESSION: Normal x-ray examination of the chest. Electronically Signed: Tee Stallworth DO at 16:19 EST Tel , Service support ,
[2019-10-17 15:36] LABS: Anion Gap 5 (5-15); BUN 8 mg/dL (7-18); BUN/Creat Ratio 10.6 RATIO (10-20); Calcium,Total 8.2 mg/dL (8.5-10.1); Chloride 109 mmol/L (98-107); Creatinine, Serum 0.76 mg/dL (0.55-1.02); EST Glomerular Filtration Rate 91 mL/min (>60); Est Glom Filt Rate - Afr Amer 111 mL/min (>60); Estimated Creatinine Clearance 114.38 ml/min; Glucose 98 mg/dL (74-106); Potassium 3.7 mmol/L (3.5-5.1); Sodium Level 138 mmol/L (136-145)
[2019-10-17 17:17] VITALS: BP 114/72; PULSE 87; RESP 16; O2SAT 99
--- NOTE | 2019-10-17 17:17 | ED.RN ---
IV DC'ED, CATHETER INTACT, SMALL GAUZE DRESSING PLACED. DISCHARGE INSTRUCTIONS GIVEN TO AND REVIEWED WITH PATIENT, PATIENT DENIES QUESTIONS OR CONCERNS AND VOICES UNDERSTANDING OF DISCHARGE INSTRUCTIONS. PT AMBULATES OUT OF ROOM WITHOUT DIFFICULTY.
== END 2019-10-17 17:19 | disposition home or self-care (01) ==
PROVIDERS: Emergency Provider Emergency Medicine; Family Provider Internal Medicine; PCP Internal Medicine
DX: A08.4 Viral intestinal infection, unspecified (principal); G43.909 Migraine, unspecified, not intractable, without status migrainosus; R07.9 Chest pain, unspecified; E66.9 Obesity, unspecified; Z68.41 Body mass index [BMI] 40.0-44.9, adult
CPT/HCPCS: 71046; 80048; 93005; 96361; 96374; 96375; 99284

== ENCOUNTER 2024-07-19 07:48 | Emergency (ER) | payer OTHER, SELFPAY ==
[2024-07-19 07:49] VITALS: BP 128/76; PULSE 76; RESP 16; TEMP 36.6; O2SAT 100; BMI 38.2
[2024-07-19] MEDS: DiphenhydrAMINE 25 MG Capsule 50 MG PO (08:48)
[2024-07-19] MEDS: Ondansetron ODT 4 MG Tablet PO (08:48)
--- NOTE | 2024-07-19 09:02 | EX.ED.DYSGE1 ---
HPI History of Present Illness Chief Complaint: Allergic Reaction Narrative Narrative: Chief complaint and HPI: Allergic reaction. 39-year-old female with history of anxiety presents for evaluation of concern for allergic reaction. Patient states she was recently switched to an extended release propranolol for her anxiety. She states she took it this morning. She states about an hour later later at work she developed a diffuse pruritic rash. She states she felt flushed. She states it is already improving. She also endorses some nausea and ear fullness. States she had some right upper quadrant pain that is improving. Patient has a history of a cholecystectomy. Denies any fever, chills, URI symptoms, vomiting, diarrhea, wheezing, shortness of breath, chest pain, facial swelling. Review of systems: See HPI Medications: As listed on the chart Allergies: As listed on the chart PFSH: Per chart Vital signs: As listed on the chart. Reviewed. Physical exam: Gen: A&O x3, NAD Head: Normocephalic, atraumatic Eyes: No sclera icterus, conjunctiva clear, PERRL, EOMI ENT: TMs clear BL, moist mucous membranes, posterior oropharynx unremarkable, uvula midline, tonsils not enlarged, no tonsillar exudates, no submandibular, no tongue swelling, no angioedema Neck: Trachea midline, No JVD, Full ROM, no swelling CV: RRR, no murmurs, no peripheral edema Resp: Lungs CTA BL, no w/r/c, no stridor GI: Abd soft, non-distended, non-tender, no r/r/g Musc: Full ROM, no deformity Skin: Warm, dry, no rash-patient states that was on her bilateral upper extremities and chest Neuro: Alert, oriented, grossly intact, sensation intact Psych: Cooperative, appropriate mood and affect [facility] Home Medications ?Medication ?Instructions ?Recorded ?Last Taken ?Type metoclopramide HCl 10 mg tablet 10 mg PO Q6H PRN nausea or 10/17/19 Unknown Rx migraine #16 tabs sumatriptan succinate 25 mg tablet 25 mg PO .X1 PRN 10/17/19 Unknown History Allergy/AdvReac Type Severity Reaction Status Date / Time amoxicillin trihydrate (From Allergy Rash Verified 07/19/24 07:48 Augmentin) potassium clavulanate (From Allergy Rash Verified 07/19/24 07:48 Augmentin) tramadol Allergy Itching Verified 07/19/24 07:48 hydrocodone (From Vicodin) AdvReac Nausea Verified 07/19/24 07:48 Social History Smoking Status: Never smoker EXAM Physical Exam Const Vital Signs: 07/19/24 07:49 Temperature 97.8 F Temperature Source Temporal Pulse Rate 76 Respiratory Rate 16 Blood Pressure 128/76 H Blood Pressure Mean 93 Pulse Ox 100 Oxygen Delivery Method Room Air MDM MDM MDM Narrative Medical decision making narrative: 39-year-old female presents for evaluation of possible allergic reaction. She states she was recently switched to an extended release propranolol. She was on propranolol prior to this. States she broke out in a pruritic rash with some nausea and ear fullness at work. Symptoms are improving. No rash currently visible. Will give Benadryl and Zofran with reassessment. No laboratory workup needed at this time. Patient is not an anaphylactic reaction that requires epinephrine. On reevaluation, patient states her pruritus has improved. She is no longer nauseous. No vomiting. Vitals are stable. I am not quite sure this was a allergic reaction. Patient has no visible urticaria or rash. With her ear fullness may be early virus. Patient was educated to stop taking her propranolol and follow-up with her PCP. She has an appointment next week. Will prescribe Benadryl as needed for possible allergic reaction. She confirmed understanding. Return precautions explained. Patient asking for a work note. This was provided. Impression: 1. Possible allergic reaction 2. History of anxiety. Discharge Plan Triage Chief Complaint: Allergic Reaction ED Provider: Ke Jarvis Dx/Rx/DC Orders Prescriptions: No Action sumatriptan succinate 25 MG tablet 25 mg PO .X1 PRN metoclopramide HCl 10 MG tablet 10 mg PO Q6H PRN (Reason: nausea or migraine) Qty: 16 0RF Primary Care Provider: Irma Augustin Referrals: Irma Augustin MD [Primary Care Provider] - Print Language: Polish
[2024-07-19 09:32] VITALS: BP 117/86; PULSE 89; RESP 22; TEMP 36.7; O2SAT 100
== END 2024-07-19 09:32 | disposition home or self-care (01) ==
PROVIDERS: Emergency Provider Surgery; PCP Internal Medicine; Visit Provider Surgery
DX: R21 Rash and other nonspecific skin eruption (principal); R11.0 Nausea; F41.9 Anxiety disorder, unspecified; Z79.899 Other long term (current) drug therapy
CPT/HCPCS: 99282; J2405

== ENCOUNTER 2025-08-14 16:45 | Emergency (ER) | payer OTHER, SELFPAY ==
[2025-08-14 16:46] VITALS: BP 160/91; PULSE 89; RESP 14; TEMP 36.3; O2SAT 100; BMI 43.2
--- NOTE | 2025-08-14 16:47 | RAD_ITS ---
PROCEDURE: RAD/Foot min 3 Views
[2025-08-14 19:45] VITALS: BP 129/85; PULSE 88; RESP 18; TEMP 36.6; O2SAT 100
--- NOTE | 2025-08-14 19:48 | EX.ED.GENINJ ---
HPI History of Present Illness Chief Complaint: Lower Extremity Injury Informant: patient Onset/Context/Timing Onset: Yesterday Mechanism/Context: Blunt Injury (Stepped on her right foot) Location of pain/injuries: Right foot (Pain 3rd through 5th toe with discoloration 4th and 5th toe) Location: Previously documented Current Severity: Mild Maximum Severity: Moderate Worsened by: Weightbearing Relieved by: Nothing Associated Symptoms Associated Symptoms: Negative for Parasthesias, Weakness, Loss of function or Inability to ambulate Narrative Narrative: Patient is a 40-year-old woman. A steer stepped on her foot yesterday. She presents because of increased pain. She has no neurovascular symptoms. Recent Illness/Hospitalization: No PFSH PFSH Home Medications ?Medication ?Instructions ?Recorded ?Last Taken ?Type NK 08/14/25 Unknown History Allergy/AdvReac Type Severity Reaction Status Date / Time amoxicillin trihydrate (From Allergy Rash Verified 08/14/25 16:45 Augmentin) potassium clavulanate (From Allergy Rash Verified 08/14/25 16:45 Augmentin) tramadol Allergy Itching Verified 08/14/25 16:45 bupropion (From Wellbutrin) AdvReac Mild OTHER Verified 08/14/25 16:45 hydrocodone (From Vicodin) AdvReac Nausea Verified 08/14/25 16:45 Surgical History Hx of section Hx of cholecystectomy Hx of tubal ligation Social History Smoking Status: Never smoker ROS ROS ED Integumentary Reports other Details: Bruising Neurologic Neurologic: Denies paresthesias Hematologic/Lymphatic Hematologic/Lymphatic: Denies easy bleeding or easy bruising EXAM Physical Exam Const Vital Signs: 08/14/25 16:46 08/14/25 19:45 Temperature 97.4 F L 98 F Temperature Source Temporal Pulse Rate 89 88 Respiratory Rate 14 18 Blood Pressure 160/91 H 129/85 H Blood Pressure Mean 114 99 Pulse Ox 100 100 Oxygen Delivery Method Room Air Positive well nourished and well developed General Appearance ED: well developed and NAD HEENT atraumatic Eyes PERRL and EOMs intact bilaterally Resp normal respiratory effort Cardio regular rhythm Rate: regular rate Extremity full ROM; Negative for normal to inspection Extremity Narrative: Pain to palpation proximal phalanx of the 3rd, 4th and 5th toe and associated metatarsal bone. There is bruising noted over the 4th and 5th toe. Neuro oriented x3, CN's II-XII intact bilaterally, no focal motor deficits and no sensory deficits noted Psych mental status grossly normal Skin Skin Narrative: Bruising as previously mention MDM MDM MDM Narrative Medical decision making narrative: X-ray was obtained to evaluate for fracture versus contusion. Radiography Chest X-Ray - ED: Read by ED Physician (Three-view x-ray of the right foot was obtained reveals no evidence of fracture.) Diagnostic Testing: Clinical Impression(s) from Imaging Studies Foot X-Ray 08/14/25 16:47 IMPRESSION: Definite fracture is not appreciated. Small fragments subjacent to the medial malleolus is possibly an old avulsion injury but actually is age indeterminate. Clinical correlation recommended. Reading Location: [facility]END[facility] Radiology interpretation was noted. Patient did not injure her ankle therefore findings are old Discharge Plan Triage Chief Complaint: Lower Extremity Injury ED Provider: Valerio Valentine Dx/Rx/DC Orders Clinical Impression: Contusion of fifth toe of right foot, Contusion of right foot including toes, Elevated blood pressure reading Instructions: ED Foot Contusion Prescriptions: No Action NK Primary Care Provider: Irma Augustin Referrals: Irma Augustin MD [Primary Care Provider, Internal Medicine] - 10-14 Days if not better Activity Restrictions/Additional Instructions: You may take either 4 ibuprofen tablets every 8 hours or 2 Aleve tablets every 12 hours for the next 3 to 5 days for pain control. Apply ice to your foot 6-8 times a day. Print Language: Romansh Disposition Disposition: Home, Self Care
== END 2025-08-14 19:57 | disposition home or self-care (01) ==
PROVIDERS: Emergency Provider Emergency Medicine; PCP Internal Medicine; Visit Provider Emergency Medicine
DX: S90.31XA Contusion of right foot, initial encounter (principal); S90.121A Contusion of right lesser toe(s) without damage to nail, initial encounter; R03.0 Elevated blood-pressure reading, without diagnosis of hypertension; W55.89XA Other contact with other mammals, initial encounter; Z90.49 Acquired absence of other specified parts of digestive tract; Z98.51 Tubal ligation status
CPT/HCPCS: 73630; 99282